=== PATIENT | male | born 1955 | race Caucasian/White ===

== ENCOUNTER 2017-05-11 08:57 | Emergency (ER) | payer OTHER ==
[~2017-05-11] VITALS: Ht 188 cm; Wt 117.9 kg
[2017-05-11] MEDS ORDERED: ONDANSETRON PF 4 MG/2 ML VIAL. IV ONE (09:15)
[2017-05-11] MEDS ORDERED: MORPHINE SULFATE 10 MG/ML VIAL. IV ONE (09:15)
[2017-05-11] MEDS ORDERED: KETOROLAC 30 MG/ML INJ. IV ONE (09:15)
[2017-05-11] MEDS ORDERED: TAMSULOSIN 0.4 MG CAP.ER.24H. PO ONE (09:15)
--- NOTE | 2017-05-11 09:30 | PHYS DOC ---
Past Medical History Past Medical History: Diabetes-Type II, Kidney Stone Past Surgical History: Knee Replacement, Tonsillectomy, Other Additional Past Surgical Histo: VASECTOMY,CATARACT BILAT Alcohol Use: Occasionally Drug Use: None Adult General Chief Complaint Chief Complaint: FLANK PAIN HPI HPI Patient is a 62 year old male with history of diabetes type 2 and kidney stones who presents with mild right flank pain that began 2-3 weeks ago. Patient denies any nausea, vomiting, urgency, frequency or hematuria. Patient states a couple weeks ago he fell on his back. He states he was seen at urgent care. Review of Systems Review of Systems Constitutional: Denies fever or chills [] Eyes: Denies change in visual acuity, redness, or eye pain [] HENT: Denies nasal congestion or sore throat [] Respiratory: Denies cough or shortness of breath [] Cardiovascular: No additional information not addressed in HPI [] GI: Denies abdominal pain, nausea, vomiting, bloody stools or diarrhea [] : Right flank pain. Denies dysuria or hematuria [] Musculoskeletal: Denies back pain or joint pain [] Integument: Denies rash or skin lesions [] Neurologic: Denies headache, focal weakness or sensory changes [] Current Medications Current Medications Current Medications Medications (Trade) Dose Ordered Sig/Nikita Start Time Stop Time Status Last Admin Dose Admin Ketorolac Tromethamine (Toradol) 30 mg 1X ONCE 05/11/17 09:15 05/11/17 09:22 DC 05/11/17 09:51 30 MG Morphine Sulfate 5 mg 1X ONCE 05/11/17 09:15 05/11/17 09:22 DC 05/11/17 09:52 5 MG Ondansetron HCl (Zofran) 4 mg 1X ONCE 05/11/17 09:15 05/11/17 09:22 DC 05/11/17 09:51 4 MG Tamsulosin HCl (Flomax) 0.4 mg 1X ONCE 05/11/17 09:15 05/11/17 09:22 DC 05/11/17 09:51 0.4 MG Allergies Allergies Allergies Coded Allergies Type Severity Reaction Last Updated Verified No Known Drug Allergies 05/11/17 No Physical Exam Physical Exam Constitutional: Well developed, well nourished, no acute distress, non-toxic appearance. [] HENT: Normocephalic, atraumatic, bilateral external ears normal, oropharynx moist, no oral exudates, nose normal. [] Eyes: PERRLA, EOMI, conjunctiva normal, no discharge. [] Neck: Normal range of motion, no tenderness, supple, no stridor. [] Cardiovascular:Heart rate regular rhythm, no murmur [] Lungs & Thorax: Bilateral breath sounds clear to auscultation [] Abdomen: Bowel sounds normal, soft, no tenderness, no masses, no pulsatile masses. [] Skin: Warm, dry, no erythema, no rash. [] Back: Slight tenderness to the right lower lumbar spine, no midline lumbar spine tenderness, no CVA tenderness. [] Extremities: No tenderness, no cyanosis, no clubbing, ROM intact, no edema. [] Neurologic: Alert and oriented X 3, normal motor function, normal sensory function, no focal deficits noted. [] Psychologic: Affect normal, judgement normal, mood normal. [] Current Patient Data Vital Signs Vital Signs Date Time Temp Pulse Resp B/P (MAP) Pulse Ox O2 Delivery O2 Flow Rate FiO2 05/11/17 10:56 76 15 153/81 (105) 92 Room Air 05/11/17 09:02 97.6 97.6 Lab Values Laboratory Tests Test 05/11/17 09:30 White Blood Count 7.5 x10^3/uL (4.0-11.0) Red Blood Count 5.06 x10^6/uL (4.30-5.70) Hemoglobin 15.7 g/dL (13.0-17.5) Hematocrit 45.3 % (39.0-53.0) Mean Corpuscular Volume 90 fL (79-100) Mean Corpuscular Hemoglobin 31 pg (25-35) Mean Corpuscular Hemoglobin Concent 35 g/dL (31-37) Red Cell Distribution Width 13.6 % (11.5-14.5) Platelet Count 179 x10^3/uL (140-400) Neutrophils (%) (Auto) 71 % (31-73) Lymphocytes (%) (Auto) 18 % (24-48) L Monocytes (%) (Auto) 7 % (0-9) Eosinophils (%) (Auto) 3 % (0-3) Basophils (%) (Auto) 1 % (0-3) Neutrophils # (Auto) 5.4 x10^3uL (1.8-7.7) Lymphocytes # (Auto) 1.3 x10^3/uL (1.0-4.8) Monocytes # (Auto) 0.5 x10^3/uL (0.0-1.1) Eosinophils # (Auto) 0.2 x10^3/uL (0.0-0.7) Basophils # (Auto) 0.1 x10^3/uL (0.0-0.2) Urine Collection Type Unknown Urine Color Yellow Urine Clarity Clear Urine pH 6.0 Urine Specific [place] 1.020 Urine Protein Negative mg/dL (NEG-TRACE) Urine Glucose (UA) Negative mg/dL (NEG) Urine Ketones (Stick) Negative mg/dL (NEG) Urine Blood Negative (NEG) Urine Nitrite Negative (NEG) Urine Bilirubin Negative (NEG) Urine Urobilinogen Dipstick 0.2 mg/dL (0.2 mg/dL) Urine Leukocyte Esterase Negative (NEG) Urine RBC 0 /HPF (0-2) Urine WBC 0 /HPF (0-4) Urine Squamous Epithelial Cells Occ /LPF Urine Bacteria 0 /HPF (0-FEW) Urine Mucus Marked /LPF Sodium Level 138 mmol/L (136-145) Potassium Level 4.3 mmol/L (3.5-5.1) Chloride Level 101 mmol/L (98-107) Carbon Dioxide Level 30 mmol/L (21-32) Anion Gap 7 (6-14) Blood Urea Nitrogen 8 mg/dL (8-26) Creatinine 0.8 mg/dL (0.7-1.3) Estimated GFR (Cockcroft-Gault) 97.6 BUN/Creatinine Ratio 10 (6-20) Glucose Level 219 mg/dL (70-99) H Calcium Level 9.0 mg/dL (8.5-10.1) Total Bilirubin 0.5 mg/dL (0.2-1.0) Aspartate Amino Transferase (AST) 17 U/L (15-37) Alanine Aminotransferase (ALT) 27 U/L (16-63) Alkaline Phosphatase 67 U/L (46-116) Total Protein 7.4 g/dL (6.4-8.2) Albumin 4.3 g/dL (3.4-5.0) Albumin/Globulin Ratio 1.4 (1.0-1.7) Lipase 166 U/L (73-393) Laboratory Tests 05/11/17 09:30 Laboratory Tests 05/11/17 09:30 EKG EKG [] Radiology/Procedures Radiology/Procedures []PROCEDURE: CT ABDOMEN PELVIS WO CONTRAST Examination: CT of the pelvis was performed without contrast History: History of right flank pain for 2 to 3 weeks, history of renal stones Comparison: None available Technique: Axial CT images of the abdomen pelvis were performed without contrast. Coronal and sagittal reformats are performed PQRS Compliance Statement: One or more of the following individualized dose reduction techniques were utilized for this examination: 1. Automated exposure control 2. Adjustment of the mA and/or kV according to patient size 3. Use of iterative reconstruction technique Findings: Patchy groundglass airspace opacities identified in the bibasal lungs. No evidence of free air identified in the abdomen. The evaluation of the solid organs is limited due to lack of IV contrast. The evaluation of bowel is limited due to lack of oral contrast. There is mild decreased attenuation noted throughout the liver likely hepatic steatosis. Mild hepatomegaly. The gallbladder is mildly distended. Small calcified stone identified within the gallbladder. Visualized spleen, adrenals grossly appears unremarkable. The visualized pancreas grossly appears unremarkable. The stomach is mildly distended. The small bowel is nondilated. Appendix is normal. Feces and gas noted in the colon. Multiple sigmoid colon diverticulosis. The urinary bladder is mildly distended. Questionable minimal stranding identified around the urinary bladder. Punctate 2 mm intrarenal collecting system calculi is identified in the right kidney. No evidence of hydronephrosis. Punctate 1 mm intrarenal collecting system calculi identified left kidney. There is a 1.9 cm density measuring 95 Hounsfield units projects in the inferior aspect of the lower pole of the left kidney medially could be a hyperdense cyst or mass. Mild aortic atherosclerosis. Minimal enlarged prostate with central prostatic calcifications. Moderate size fat and omentum containing umbilical hernia. Moderate degenerative changes identified in the visualized thoracal lumbar spine. L5 left spondylolysis. Tiny sclerotic density measuring 2 mm identified in the left 11th posterior rib. Impression: 1. Minimal questionable fat stranding identified about the urinary bladder, nonspecific. Mild cystitis is not excluded. Recommend correlation with lab values. 2. Punctate bilateral intrarenal collecting system calculi without hydronephrosis. 3. 1.6 cm hyper density identified in the medial aspect of the inferior left kidney could be hyperdense cyst or mass. Follow-up nonemergent Course & Med Decision Making Course & Med Decision Making Pertinent Labs and Imaging studies reviewed. (See chart for details) This is a 62-year-old male patient presented to the ED today with a right flank pain for 2-3 weeks. Patient also has fallen on his back a couple weeks ago. CBC lipase with no acute findings, CMP was noted for glucose of 219 patient has history of diabetes. Urine analysis is negative for infection, Negative for blood. CT of the abdomen and pelvic was noted for intrarenal calculi with no hydronephrosis. Those questionable cystitis though patient has no elevated white count no infection in his urine. Patient was also noted for a cyst/mass on his left kidney which I requested he follows up with the PCP or urologist which he doesn't have. His pain appeared to be more musculoskeletal on the right low lumbar back. I recommended this patient establishes care with a PCP, provided him a doctor's list for follow-up. He also has umbilical hernia, and cholelithiasis. Recommended he follows up with the general surgeon for this. Dragon Disclaimer Dragon Disclaimer This electronic medical record was generated, in whole or in part, using a voice recognition dictation system. Departure Departure Impression: Primary Impression: Low back pain Additional Impressions: Acute right flank pain Cholelithiasis Umbilical hernia Disposition: 01 HOME, SELF-CARE Condition: STABLE Patient Instructions: Back Pain, Adult, Cholelithiasis, Flank Pain, Easy-to- Read Additional Instructions: You were seen for right flank pain/low back pain. Your work up in the emergency room was negative for any acute findings. Your urine was negative for infection. Your CT was noted for intrarenal calculi/kidney stones in your kidneys. This typically don't cause issues unless they start moving. You also were noted for a cyst on your left kidney. We highly recommend you establish care with a urologist or even a primary care doctor and follow-up with this. [facility] has a urologist. [facility] does not have one. Their phone number is [phone]. Please select one of the primary care doctors from the list provided and follow-up. He also need to follow-up with a general surgeon for gallstones as well as umbilical hernia. Take the prescribed medicines as needed for pain. Do not drive or operate machinery on them. Scripts Cyclobenzaprine Hcl (CYCLOBENZAPRINE HCL) 10 Mg Tablet 1 TAB PO TID, #30 TAB Prov: KEVIN DAVIS APRN 05/11/17 Hydrocodone/Apap 5-325 (NORCO 5-325 TABLET) 1 Each Tablet 1-2 TAB PO Q4-6HRS, #15 TAB Prov: KEVIN DAVIS APRN 05/11/17 Problem Qualifiers Primary Impression: Low back pain Chronicity: acute Back pain laterality: right Sciatica presence: without sciatica Qualified Codes: M54.5 - Low back pain Additional Impressions: Cholelithiasis Cholelithiasis location: gallbladder Cholecystitis presence: without cholecystitis Biliary obstruction: with biliary obstruction Qualified Codes: K80.21 - Calculus of gallbladder without cholecystitis with obstruction Umbilical hernia Obstruction and gangrene presence: without obstruction or gangrene Qualified Codes: K42.9 - Umbilical hernia without obstruction or gangrene KEVIN DAVIS APRN May 11, 2017 09:29
[2017-05-11 09:43] LABS: BASO # 0.1 x10^3/uL (0.0-0.2); BASO % 1 % (0-3); BILIRUBIN,URINE NEGATIVE (NEG); EOS % 3 % (0-3); GLUCOSE,URINE NEGATIVE (NEG); HEMATOCRIT 45.3 % (39.0-53.0); HEMOGLOBIN 15.7 g/dL (13.0-17.5); LYMPH # 1.3 x10^3/uL (1.0-4.8); LYMPH % 18 % (24-48); MEAN CORPUSCULAR HEMOGLOBIN 31 pg (25-35); MEAN CORPUSCULAR HGB CONC 35 g/dL (31-37); MEAN CORPUSCULAR VOLUME 90 fL (79-100); MONO % 7 % (0-9); NEUT % 71 % (31-73); NITRITE,URINE NEGATIVE (NEG); PLATELET COUNT 179 x10^3/uL (140-400); PROTEIN,URINE NEGATIVE (NEG-TRACE); RED BLOOD COUNT 5.06 x10^6/uL (4.30-5.70); RED CELL DISTRIBUTION WIDTH 13.6 % (11.5-14.5); UROBILINOGEN,URINE 0.2 mg/dL (0.2 mg/dL); WHITE BLOOD COUNT 7.5 x10^3/uL (4.0-11.0)
[2017-05-11 09:48] LABS: CREATININE 0.8 mg/dL (0.7-1.3); GFR 97.6; POTASSIUM 4.3 mmol/L (3.5-5.1)
[2017-05-11 09:54] LABS: ALBUMIN 4.3 g/dL (3.4-5.0); ALBUMIN/GLOBULIN RATIO 1.4 (1.0-1.7); TOTAL BILIRUBIN 0.5 mg/dL (0.2-1.0); TOTAL PROTEIN 7.4 g/dL (6.4-8.2)
[2017-05-11 10:17] LABS: BACTERIA,URINE 0 /HPF (0-FEW); RBC,URINE 0 /HPF (0-2); SQUAMOUS EPITHELIAL CELL,UR OCC /LPF; WBC,URINE 0 /HPF (0-4)
--- NOTE | 2017-05-11 10:35 | RAD ---
Examination: CT of the pelvis was performed without contrast History: History of right flank pain for 2 to 3 weeks, history of renal stones Comparison: None available Technique: Axial CT images of the abdomen pelvis were performed without contrast. Coronal and sagittal reformats are performed PQRS Compliance Statement: One or more of the following individualized dose reduction techniques were utilized for this examination: 1. Automated exposure control 2. Adjustment of the mA and/or kV according to patient size 3. Use of iterative reconstruction technique Findings: Patchy groundglass airspace opacities identified in the bibasal lungs. No evidence of free air identified in the abdomen. The evaluation of the solid organs is limited due to lack of IV contrast. The evaluation of bowel is limited due to lack of oral contrast. There is mild decreased attenuation noted throughout the liver likely hepatic steatosis. Mild hepatomegaly. The gallbladder is mildly distended. Small calcified stone identified within the gallbladder. Visualized spleen, adrenals grossly appears unremarkable. The visualized pancreas grossly appears unremarkable. The stomach is mildly distended. The small bowel is nondilated. Appendix is normal. Feces and gas noted in the colon. Multiple sigmoid colon diverticulosis. The urinary bladder is mildly distended. Questionable minimal stranding identified around the urinary bladder. Punctate 2 mm intrarenal collecting system calculi is identified in the right kidney. No evidence of hydronephrosis. Punctate 1 mm intrarenal collecting system calculi identified left kidney. There is a 1.9 cm density measuring 95 Hounsfield units projects in the inferior aspect of the lower pole of the left kidney medially could be a hyperdense cyst or mass. Mild aortic atherosclerosis. Minimal enlarged prostate with central prostatic calcifications. Moderate size fat and omentum containing umbilical hernia. Moderate degenerative changes identified in the visualized thoracal lumbar spine. L5 left spondylolysis. Tiny sclerotic density measuring 2 mm identified in the left 11th posterior rib. Impression: 1. Minimal questionable fat stranding identified about the urinary bladder, nonspecific. Mild cystitis is not excluded. Recommend correlation with lab values. 2. Punctate bilateral intrarenal collecting system calculi without hydronephrosis. 3. 1.6 cm hyper density identified in the medial aspect of the inferior left kidney could be hyperdense cyst or mass. Follow-up nonemergent ultrasound can be considered. 4.Cholelithiasis. 5. Mild hepatic steatosis. Mild hepatomegaly. 6. Moderate size fat and omentum containing umbilical hernia. 7. Tiny sclerotic density measuring 2 mm identified in the left 11th posterior rib. Nonspecific could be a small bone island.
[2017-05-11] MEDS ORDERED: CYCL10TA2 PO (11:37)
[2017-05-11] MEDS ORDERED: HYDR-971 PO (11:37)
[2017-05-11 11:56] VITALS: BP 156/85
== END 2017-05-11 12:15 | disposition home or self-care (01) ==
LOC: ER 08:57
DX: K80.21 Calculus of gallbladder without cholecystitis with obstruction (principal); K42.9 Umbilical hernia without obstruction or gangrene; M54.5 Low back pain; E11.9 Type 2 diabetes mellitus without complications; Z87.442 Personal history of urinary calculi; Z96.659 Presence of unspecified artificial knee joint
CPT/HCPCS: 36415; 74176; 80053; 81001; 83690; 85025; 96374; 96375; 99285; J1885; J2270; J2405

== ENCOUNTER 2017-05-22 09:07 | Observation (INO) | payer OTHER ==
[~2017-05-22] VITALS: Ht 188 cm; Wt 134.3 kg
[2017-05-22] VITALS (11 sets, daily range): BP systolic 114–165; BP diastolic 54–97
[~2017-05-22 09:07] MED LIST: ACET650T89 PO; CYCL10TA2 PO; GLUC-12 PO; HYDR-971 PO; HYDROmorphone 2 MG/ML VIAL IV PRN; LIDOCAINE 1% PF 2 ML VIAL. ID PRN; METF500T4 PO; MORPHINE SULFATE 2 MG/ML DISP.SYRIN. IV PRN; MULT1TAB52 PO; ONDANSETRON PF 4 MG/2 ML VIAL. IV PRN; PROCHLORPERAZINE 10 MG/2 ML VIAL. IV PRN; fentaNYL PF VIAL 100 MCG/2 ML VIAL IV PRN
[2017-05-22] MEDS: IV RINGERS,LACTATED 1000ML 1,000 ML IV SCH ×2 (10:33→14:41)
[2017-05-22] MEDS ORDERED: IOHEXOL 300 MG/ML 50 ML VIAL. ONE (10:48)
[2017-05-22] MEDS ORDERED: BUPIVACAINE-EPI 0.5%-1:200000 50 ML VIAL. ONE (10:49)
[2017-05-22] MEDS ORDERED: SURGICEL HEMOSTAT 4X8 EACH. ONE (10:49)
[2017-05-22] MEDS ORDERED: MIDAZOLAM HCL/PF 2 MG/2 ML VIAL. ONE (10:59)
[2017-05-22] MEDS ORDERED: fentaNYL PF VIAL 250 MCG/5 ML VIAL ONE (10:59)
[2017-05-22] MEDS ORDERED: SUCCINYLCHOLINE 200 MG/10 ML VIAL. ONE (10:59)
[2017-05-22] MEDS ORDERED: PROPOFOL 20 ML IV ONE (11:01)
[2017-05-22] MEDS ORDERED: DESFLURANE > 120 MINUTES IH ONE (11:01)
[2017-05-22] MEDS ORDERED: ONDANSETRON PF 4 MG/2 ML VIAL. ONE (11:01)
[2017-05-22] MEDS ORDERED: LIDOCAINE 2% PF Vial for OR 5 ML VIAL. ONE (11:01)
[2017-05-22] MEDS ORDERED: PHENYLEPHRINE in 0.9% NACL PF 1 MG/10 ML DISP.SYRIN. IV ONE (12:25)
[2017-05-22] MEDS ORDERED: REMIFENTANIL 1 MG VIAL. IV ONE (12:45)
[2017-05-22] MEDS ORDERED: GLYCOPYRROLATE 1 MG/5 ML VIAL. ONE (12:53)
[2017-05-22] MEDS ORDERED: NEOSTIGMINE 10 MG/10 ML VIAL. ONE (12:54)
--- NOTE | 2017-05-22 13:02 | RAD ---
Indication protocol study. Assess for. Anatomy. Assess for potential choledocholithiasis. For members of the Department of surgery fluoroscopy was provided. 4 spot fluoroscopic images were obtained. The fluoroscopy time indicated associated with the imaging is 17 seconds. No filling defects are seen to suggest choledocholithiasis. Contrast flows unremarkably into the duodenum. IMPRESSION: Normal operative cholangiogram
--- NOTE | 2017-05-22 13:25 | PDOC4 ---
Operative Note Operative Note Operative Note: Preoperative Diagnosis: Symptomatic cholelithiasis Postoperative Diagnosis: Same Procedure: Laparoscopic cholecystectomy with intraoperative cholangiogram Surgeons: Anuj Asst: Nayana SORENSEN Anesthesia: Gen. Estimated Blood Loss: 25 mL Specimen: Gallbladder to pathology Drains: None Complications: None Indications: The patient is a 62-year-old male who is been experiencing recurrent upper abdominal pain consistent with biliary colic. His evaluation identified gallstones. Surgical treatment was offered by means of a laparoscopic cholecystectomy. The risks of surgery were discussed which include bleeding, infection, bile duct injury, bile leak, pain, the potential for additional surgeries or procedures. The patient understands and would like to proceed. In addition he has an incidental mid abdominal hernia containing fat. I did discuss with him options for surgical repair and the typical use of mesh. However I would not advise for placement of mesh at the same time as a cholecystectomy out of concern for contamination. He understands and we can plan for a dedicated hernia repair in the near future. Description: The patient was taken to the operating room and laid supine on the operating table. General anesthesia was performed. The abdomen was prepped with ChloraPrep and draped in a standard surgical fashion. A right abdominal incision was made with a scalpel through which a visualized 5 mm trocar was inserted. A pneumoperitoneum was then created and the laparoscope was introduced. In the upper midabdomen an 11 mm trocar was inserted and in the right upper quadrant two 5 mm trocars were inserted. The gallbladder was retracted cephalad. The cystic duct was dissected free from surrounding tissues. One clip was placed on the duct near the gallbladder junction. An opening was made in the duct and a cholangiocatheter placed within and secured with a clip. Using contrast dye and fluoroscopy an intraoperative cholangiogram was performed that appeared unremarkable. The clip and catheter were then withdrawn. Three clips were placed on the cystic duct and it was divided. The cystic artery was then identified, dissected free, doubly clipped and divided as well. The gallbladder was then mobilized away from the liver with cautery. The gallbladder was then placed in an endoscopic bag and extracted at the superior abdominal trocar site. The fascia there was closed with an 0 Vicryl suture. All blood and irrigation fluid was suctioned and hemostasis was good. The remaining ports were removed and the pneumoperitoneum was relieved. The skin incisions were injected with half percent Marcaine with epinephrine, and all were closed using 4-0 Monocryl suture. Steri-Strips and dressings were then applied. The patient tolerated the procedure well and was sent to the recovery room in stable condition. At the end of the case all counts were correct. PORTILLO ROMO MD May 22, 2017 13:25
[2017-05-22] MEDS ORDERED: ONDANSETRON PF 4 MG/2 ML VIAL. IV PRN (13:30)
[2017-05-22] MEDS ORDERED: oxyCODONE/APAP 5/325 1 TAB TABLET PO PRN (13:30)
[2017-05-22] MEDS ORDERED: DEXTROSE 50% 25 GM / 50ML DISP.SYRIN. IV PRN (13:30)
[2017-05-22] MEDS ORDERED: 0.9 % SODIUM CHLORIDE 10 ML DISP.SYRIN. IV PRN (13:30)
[2017-05-22] MEDS ORDERED: HYDROmorphone 2 MG/ML VIAL IV PRN (13:30)
[2017-05-22] MEDS: IV 1/2 NORMAL SALINE 1,000 ML IV SCH (14:00)
[2017-05-22] MEDS ORDERED: INSULIN ASPART 100 UNIT/ML 10ML VIAL. SQ ONE ×2 (14:19→15:00)
[2017-05-22] MEDS: fentaNYL PF VIAL 100 MCG/2 ML VIAL IV PRN ×2 (14:39→14:58)
[2017-05-22] MEDS ORDERED: INFLUENZA VAX SCREEN BY RX. MC ONE (16:15)
[2017-05-22] MEDS ORDERED: INSULIN ASPART 300 UNITS/3 ML INSULN.PEN SQ SCH (16:30)
[2017-05-22] MEDS ORDERED: FLU VACC QS2017-18 (36MOS+)/PF 0.5 ML SYRINGE. VAX IM ONE (16:30)
[2017-05-22] MEDS: oxyCODONE/APAP 5/325 1 TAB TABLET PO PRN ×3 (17:20→22:18)
[2017-05-23] MEDS: IV 1/2 NORMAL SALINE 1,000 ML IV SCH (02:30)
[2017-05-23 02:32] VITALS: BP 114/73
[2017-05-23 06:46] VITALS: BP 119/67
[2017-05-23] MEDS ORDERED: metFORMIN 500 MG TABLET PO SCH (08:00)
[2017-05-23] MEDS: oxyCODONE/APAP 5/325 1 TAB TABLET PO PRN (09:25)
[2017-05-23] MEDS ORDERED: OXYC1TAB7 PO (11:56)
--- NOTE | 2017-05-23 11:58 | PDOC3 ---
Discharge Summary Date of Admission: May 22, 2017 Date of Discharge: May 23, 2017 Follow-Up: Other (2 weeks ) Admitting Diagnosis comment: cholelithiasis Problems: FINAL DIAGNOSIS cholelithiasis Brief Hospital Course Mr. Joseph is a 62 old male who presented with cholelithiasis. Underwent laparoscopic cholecystectomy. Postoperatively tolerating diet, ambulating, pain managed. Ready for discharge home CONDITION AT DISCHARGE: Stable Discharge Medications Current Medications Ondansetron HCl (Zofran) 4 mg PRN Q6HRS PRN IV NAUSEA/VOMITING; Start 05/22/17 at 07:00; Stop 05/22/17 at 16:33; Status DC Fentanyl Citrate (Fentanyl 2ml Vial) 25 mcg PRN Q5MIN PRN IV MILD PAIN; Start 05/22/17 at 07:00; Stop 05/22/17 at 16:33; Status DC Fentanyl Citrate (Fentanyl 2ml Vial) 50 mcg PRN Q5MIN PRN IV MODERATE PAIN Last administered on 05/22/17 14:58; Start 05/22/17 at 07:00; Stop 05/22/17 at 16:33; Status DC Morphine Sulfate 1 mg PRN Q10MIN PRN IV SEVERE PAIN; Start 05/22/17 at 07:00; Stop 05/22/17 at 16:33; Status DC Ringer's Solution 1,000 ml @ 30 mls/hr Q24H IV Last administered on 05/22/17t 14:41; Start 05/22/17 at 07:00; Stop 05/22/17 at 16:33; Status DC Lidocaine HCl (Xylocaine-Mpf 1% Vial) 2 ml PRN 1X PRN ID PRIOR TO IV START; Start 05/22/17 at 07:00; Stop 05/22/17 at 16:33; Status DC Hydromorphone HCl (Dilaudid) 0.5 mg PRN Q10MIN PRN IV SEV PAIN, Second choice; Start 05/22/17 at 07:00; Stop 05/22/17 at 16:33; Status DC Prochlorperazine Edisylate (Compazine) 5 mg PACU PRN PRN IV NAUSEA, MRX1; Start 05/22/17 at 07:00; Stop 05/22/17 at 16:33; Status DC Cefazolin Sodium/ Dextrose 50 ml @ 100 mls/hr 1X PRN PRN IV PRIOR TO SURGERY Last administered on 05/22/17 12:35; Start 05/22/17 at 08:00 Midazolam HCl (Versed) 2 mg STK-MED ONCE .ROUTE ; Start 05/22/17 at 10:59; Stop 05/22/17 at 11:00; Status DC Fentanyl Citrate (Fentanyl 5ml Vial) 250 mcg STK-MED ONCE .ROUTE ; Start at 10:59; Stop 05/22/17 at 11:00; Status DC Succinylcholine Chloride (Anectine) 200 mg STK-MED ONCE .ROUTE ; Start 05/22/17 at 10:59; Stop 05/22/17 at 11:00; Status DC Desflurane (Suprane) 90 ml STK-MED ONCE IH ; Start 05/22/17 at 11:01; Stop 05/22 at 11:02; Status DC Propofol 20 ml @ As Directed STK-MED ONCE IV ; Start 05/22/17 at 11:01; Stop at 11:02; Status DC Lidocaine HCl (Lidocaine Pf 2% Vial) 5 ml STK-MED ONCE .ROUTE ; Start 05/22/17 at 11:01; Stop 05/22/17 at 11:02; Status DC Ondansetron HCl (Zofran) 4 mg STK-MED ONCE .ROUTE ; Start 05/22/17 at 11:01; Stop 05/22/17 at 11:02; Status DC Iohexol (Omnipaque 300 Mg/ml) 50 ml STK-MED ONCE .ROUTE Last administered on 12:53; Start 05/22/17 at 10:48; Stop 05/22/17 at 11:49; Status DC Bupivacaine HCl/ Epinephrine Bitart (Marcaine-Epi 0.5%-[id number]) 50 ml STK-MED ONCE .ROUTE Last administered on 05/22/17 12:39; Start 05/22/17 at 10:49; Stop 05/22/17 at 11:49; Status DC Cellulose 1 each STK-MED ONCE .ROUTE ; Start 05/22/17 at 10:49; Stop 05/22/17 at 11:49; Status DC Phenylephrine HCl 1 mg STK-MED ONCE IV ; Start 05/22/17 at 12:25; Stop 05/22/17 at 12:26; Status DC Remifentanil HCl (Ultiva) 1 mg STK-MED ONCE IV ; Start 05/22/17 at 12:45; Stop 05/22/17 at 12:46; Status DC Glycopyrrolate (Robinul) 1 mg STK-MED ONCE .ROUTE ; Start 05/22/17 at 12:53; Stop 05/22/17 at 12:54; Status DC Neostigmine Methylsulfate (Bloxiverz) 10 mg STK-MED ONCE .ROUTE ; Start at 12:54; Stop 05/22/17 at 12:55; Status DC Sodium Chloride (Normal Saline Flush) 3 ml QSHIFT PRN IV AFTER MEDS AND BLOOD DRAWS; Start 05/22/17 at 13:30 Sodium Chloride 1,000 ml @ 80 mls/hr [id number] IV ; Start 05/22/17 at 14:00; Stop 05/23/17 at 07:10; Status DC Dextrose (Dextrose 50%-Water Syringe) 12.5 gm PRN Q15MIN PRN IV SEE COMMENTS; Start 05/22/17 at 13:30 Oxycodone/ Acetaminophen (Percocet 5/325) 1 tab PRN Q4HRS PRN PO MILD PAIN, 1ST CHOICE Last administered on 05/23/17 09:25; Start 05/22/17 at 13:30 Oxycodone/ Acetaminophen (Percocet 5/325) 2 tab PRN Q4HRS PRN PO MODERATE PAIN , SEVERE PAIN; Start 05/22/17 at 13:30 Hydromorphone HCl (Dilaudid) 0.2 mg PRN Q1HR PRN IV PAIN; Start 05/22/17 at 13: 30 Ondansetron HCl (Zofran) 4 mg PRN Q6HRS PRN IV NAUESA, 1ST CHOICE; Start at 13:30 Metformin HCl (Glucophage) 500 mg DAILYWBKFT PO Last administered on 08:19; Start 05/23/17 at 08:00 Insulin Aspart (NovoLOG) 5 units TIDAC SQ Last administered on 05/22/17 14:24 ; Start 05/22/17 at 16:30; Stop 05/22/17 at 16:30; Status DC Insulin Aspart (NovoLOG VIAL) 100 unit STK-MED ONCE SQ ; Start 05/22/17 at 14:19 ; Stop 05/22/17 at 14:20; Status DC Insulin Aspart (NovoLOG VIAL) 5 unit 1X ONCE SQ ; Start 05/22/17 at 15:00; Stop 05/22/17 at 15:01; Status DC Info (Do NOT chart on this placeholder) 1 each 1X ONCE MC ; Start 05/22/17 at 16:15; Stop 05/22/17 at 16:16; Status UNV Influenza Virus Vaccine Quadrival (Fluarix Quad [id number] Syringe) 0.5 ml ONCE ONCE VAX IM Last administered on 05/22/17t 17:24; Start 05/22/17 at 16:30; Stop 05/22/17 at 16:31; Status DC Active Scripts Active [place] 5-325 Tablet (Acetaminophen/Hydrocodone Bitart) 1 Each Tablet 1-2 Tab PO Q4-6HRS Reported Arthritis Pain (Acetaminophen) 650 Mg Tablet.er 650 Mg PO DAILY Multivitamins (Multivitamin) 1 Each Tablet 1 Tab PO DAILY Glucosamine Chondroit Msm Tab (Glucosamine/Msm/Chondroitin A) 1 Each Tablet 1 Each PO DAILY Metformin Hcl 500 Mg Tablet 500 Mg PO DAILYWBKFT Vital Signs Vital Signs Date Time Temp Pulse Resp B/P (MAP) Pulse Ox O2 Delivery O2 Flow Rate FiO2 05/23/17 09:25 Room Air 05/23/17 06:46 98.8 85 19 119/67 (84) 95 98.8 05/22/17 18:23 4.0 Labs Laboratory Tests Test 05/22/17 14:01 05/23/17 06:19 Glucose (Fingerstick) 231 mg/dL (70-99) 217 mg/dL (70-99) Laboratory Tests Test 05/22/17 14:01 05/23/17 06:19 Glucose (Fingerstick) 231 mg/dL (70-99) 217 mg/dL (70-99) Allergies Allergies Coded Allergies Type Severity Reaction Last Updated Verified No Known Drug Allergies 05/22/17 No Disposition/Orders: D/C to Home SWATHI MEJIA APRN May 23, 2017 11:58 PORTILLO ROMO MD May 23, 2017 12:57
--- NOTE | 2017-05-23 11:59 | PDOC ---
SWATHI MEJIA APRN 05/23/17 1159: SURGICAL PROGRESS NOTE Subjective tolerating diet ambulating urinating Vital Signs Vital Signs Date Time Temp Pulse Resp B/P (MAP) Pulse Ox O2 Delivery O2 Flow Rate FiO2 05/23/17 09:25 Room Air 05/23/17 06:46 98.8 85 19 119/67 (84) 95 98.8 05/22/17 18:23 4.0 General: Alert, Oriented X3, Cooperative, No acute distress Abdomen: Soft, Other (ND, incisions c/d/i, no erythema ) Labs Laboratory Tests Test 05/22/17 14:01 05/23/17 06:19 Glucose (Fingerstick) 231 mg/dL (70-99) 217 mg/dL (70-99) Laboratory Tests Test 05/22/17 14:01 05/23/17 06:19 Glucose (Fingerstick) 231 mg/dL (70-99) 217 mg/dL (70-99) Problem List s/p lap irene DC home FU in 2 weeks Problems: PORTILLO ROMO MD 05/23/17 1256: SURGICAL PROGRESS NOTE Assessment/Plan Agree with above Problems: SWATHI MEJIA APRN May 23, 2017 11:59 PORTILLO ROMO MD May 23, 2017 12:56
[2017-05-23 12:19] VITALS: BP 156/94
--- NOTE | 2017-05-23 14:42 | PATHOLOGY ---
PATHOLOGY REPORT * * * * * * * * FINAL DIAGNOSIS: Gallbladder, laparoscopic cholecystectomy: - Cholelithiasis. - Chronic cholecystitis. COMMENT: There is no evidence of malignancy. (JPM:; 05/23/2017) REPORT ELECTRONICALLY SIGNED BY: Mikey Winter M.D. DATE/TIME: 05/23/2017 14:41 * * * * * * * * GROSS PATHOLOGY: Received in formalin labeled "Tristen Neal, gallbladder sac with contents," is a 6.7 x 3.8 x 2.1 cm, previously opened gallbladder with dark arce to purple, vascular and wrinkled serosal surfaces. Opening the gallbladder reveals dark arce, velvety mucosa and an average wall thickness of 0.2 cm. Calculi are present, measuring 0.3-0.5 cm in maximum dimension, possessing a dark black and granular appearance, and feeling friable to the touch. No masses are noted grossly. Helminthologist sections from the body and fundus are submitted along with the proximal margin in cassette A1. (TSD; 05/22/2017) INITIAL CPT CODE(S): A; 40888 Professional services performed [place] [facility] [address] Technical services performed by [facility] at [address] [place] [address], [facility] [address] [address]. SPECIMEN(S) RECEIVED: A.Gallbladder sac with contents CLINICAL HISTORY: Ventral hernia, gallstones PATIENT: TRISTEN NEAL /AGE: 8 1955 (Age: 62) PATIENT #: [id number] ALT CASE #: SPECIMEN COLLECTION DATE: 05/22/2017 SPECIMEN RECEIVED DATE: 05/22/2017 [facility] - [id number] [place] [address] - PHONE: [phone] * * * END OF REPORT * * *
== END 2017-05-23 12:35 | disposition home or self-care (01) ==
LOC: SURG 09:07 → 4 SOUTHEST 13:25
PROVIDERS: ADMIT Surgery; ATTEND Surgery
DX: K80.20 Calculus of gallbladder without cholecystitis without obstruction (principal); K46.9 Unspecified abdominal hernia without obstruction or gangrene; Z23 Encounter for immunization
CPT/HCPCS: 47563; 74300; 82962; 90686; C1769; G0378; G0379; J0330; J0690; J1815; J2250; J2405; J2704; J2710; J3010; J3490; J7030; Q9967; J2370; J7120; J2001

== ENCOUNTER 2017-11-14 14:34 | Emergency (ER) | payer OTHER ==
[2017-11-14] MEDS: KETOROLAC 60 MG/2 ML INJ. IM (15:47)
== END 2017-11-14 15:48 | disposition home or self-care (01) ==
LOC: ER 14:34
DX: G89.29 Other chronic pain (principal); M25.562 Pain in left knee; E11.9 Type 2 diabetes mellitus without complications; Z87.442 Personal history of urinary calculi; Z90.49 Acquired absence of other specified parts of digestive tract; Z98.890 Other specified postprocedural states
CPT/HCPCS: 96372; 99283-25; J1885

== ENCOUNTER → 2020-08-18 | Outpatient (CLI) | payer MEDICARE ==
[2019-03-19 17:51] VITALS: BP 149/76
[~2020-08-18] MED LIST changes: +ATOR10TA PO; +HYDR-2761 PO; +HYDR-3164 PO; -HYDR-971 PO; -HYDROmorphone 2 MG/ML VIAL IV PRN; -LIDOCAINE 1% PF 2 ML VIAL. ID PRN; +METF500T16 PO; -METF500T4 PO; -MORPHINE SULFATE 2 MG/ML DISP.SYRIN. IV PRN; +MULT-445 PO; -MULT1TAB52 PO; -ONDANSETRON PF 4 MG/2 ML VIAL. IV PRN; +OXYC1TAB15 PO; +OXYC1TAB7 PO; -PROCHLORPERAZINE 10 MG/2 ML VIAL. IV PRN; -fentaNYL PF VIAL 100 MCG/2 ML VIAL IV PRN
--- NOTE | 2020-08-18 16:16 | KCIC ---
EXAM: Lumbar spine, 6 views. HISTORY: Pain. COMPARISON: None. FINDINGS: 6 views of the lumbar spine are obtained. There is a transitional lumbosacral segment. This is considered L5 for this dictation. Based on this numbering system, there are blastic T12 ribs. The re is elongation of a sacralized left L5 transverse process resulting in ankylosis with the left purnima c wing. There is multilevel endplate remodeling and anterior osteophytosis. There is grade 1 anteroli sthesis of L4 on L5. There is disc space narrowing at the lumbosacral junction, a component of which is likely due to a rudimentary disc at this level. There is severe multilevel facet arthropathy. Ther e are cholecystomy clips. IMPRESSION: 1. Multilevel degenerative change throughout the lumbar spine, primarily at the lumbosacral junction. 2. Transitional lumbosacral segment, considered L5 for this dictation. There is ankylosis of an elong ated left L5 transverse process and the left iliac wing. 3. No acute osseous finding. Electronically signed by: Naheed Parra MD (08/18/2020 4:14 PM) [id number]
== END ==
LOC: KCIC 15:37
PROVIDERS: ATTEND Internal Medicine
DX: M47.817 Spondylosis without myelopathy or radiculopathy, lumbosacral region (principal)
CPT/HCPCS: 72110

== ENCOUNTER 2021-11-27 20:21 | Emergency (ER) | payer MEDICARE ==
[~2021-11-27] VITALS: Ht 188 cm; Wt 147.7 kg
[~2021-11-27 20:21] MED LIST changes: +CYCL10TA19 PO; -CYCL10TA2 PO
[2021-11-27] MEDS ORDERED: KETOROLAC 60 MG/2 ML VIAL. IM ONE (21:15)
[2021-11-27 21:42] LABS: BASO # 0.1 x10^3/uL (0.0-0.2); BASO % 1 % (0-3); EOS # 0.1 x10^3/uL (0.0-0.7); EOS % 1 % (0-3); HEMATOCRIT 42.4 % (39.0-53.0); HEMOGLOBIN 14.2 g/dL (13.0-17.5); LYMPH # 0.8 x10^3/uL (1.0-4.8); LYMPH % 7 % (24-48); MEAN CORPUSCULAR HEMOGLOBIN 29 pg (25-35); MEAN CORPUSCULAR HGB CONC 34 g/dL (31-37); MEAN CORPUSCULAR VOLUME 87 fL (79-100); MONO # 0.6 x10^3/uL (0.0-1.1); MONO % 5 % (0-9); NEUT # 9.5 x10^3/uL (1.8-7.7); NEUT % 85 % (31-73); PLATELET COUNT 185 x10^3/uL (140-400); RED BLOOD COUNT 4.87 x10^6/uL (4.30-5.70); RED CELL DISTRIBUTION WIDTH 14.1 % (11.5-14.5); WHITE BLOOD COUNT 11.1 x10^3/uL (4.0-11.0)
[2021-11-27 21:53] LABS: CALCIUM 8.6 mg/dL (8.5-10.1); GFR 74.5
[2021-11-27] MEDS ORDERED: KETOROLAC 15 MG/ML VIAL. IVP ONE (22:00)
[2021-11-27 22:01] LABS: ALBUMIN 3.8 g/dL (3.4-5.0); ALBUMIN/GLOBULIN RATIO 1.2 (1.0-1.7); TOTAL BILIRUBIN 0.4 mg/dL (0.2-1.0)
--- NOTE | 2021-11-27 22:19 | PHYS DOC ---
Past Medical History Past Medical History: Arthritis, Diabetes-Type II, Kidney Stone Additional Past Medical Histor: Parkinson's Additional Past Surgical Histo: VASECTOMY,CATARACT BILAT,HERNIA REPAIR Smoking Status: Former Smoker Alcohol Use: Occasionally Drug Use: None General Adult EDM: Chief Complaint: MECHANICAL FALL HPI: HPI: Patient is a 66 year old male who presents with head laceration, back pain, chest wall pain status post mechanical fall at home. Patient states he was attempting to put on pants when he lost his balance and fell. He states he hit his head and back on the door and his chin was flexed uncomfortably towards his chest. Patient denies any presyncopal feelings including lightheadedness, unsteadiness, vertigo. He denies blood thinner use. Patient has no other complaints at this time. Review of Systems: Review of Systems: Constitutional: Denies fever, chills or generalized weakness Eyes: Denies change in visual acuity, visual field deficits or discharge HENT: Denies ear pain, nasal congestion or sore throat Respiratory: Denies cough or shortness of breath Cardiovascular: Denies substernal chest pain, palpitations or edema GI: Denies abdominal pain, nausea, vomiting, bloody stools or diarrhea : Denies dysuria or hematuria Musculoskeletal: See HPI Integument: See HPI Neurologic: Denies headache, focal weakness or sensory changes Heart Score: C/O Chest Pain: Yes HEART Score for Chest Pain: HEART Score for Chest Pain Response (Comments) Value History Slighlty/Non-Suspicious 0 ECG Normal 0 Age > 65 2 Risk Factors 1 or 2 Risk Factors 1 Troponin < Normal Limit 0 Total 3 Risk Factors: Risk Factors: DM, obesity. Risk Scores: Score 0 - 3: 2.5% MACE over next 6 weeks - Discharge Home Score 4 - 6: 20.3% MACE over next 6 weeks - Admit for Clinical Observation Score 7 - 10: 72.7% MACE over next 6 weeks - Early Invasive Strategies Current Medications: Current Medications Medications (Trade) Dose Ordered Sig/Nikita Route PRN Reason Start Time Stop Time Status Last Admin Dose Admin Ketorolac Tromethamine (Toradol 15mg Vial) 15 mg 1X ONCE IVP 11/27/21 22:00 11/27/21 22:01 DC 11/27/21 21:55 Allergies: Allergies: Allergies Coded Allergies Type Severity Reaction Last Updated Verified No Known Drug Allergies 06/21/17 No Physical Exam: PE: Constitutional: Obese, minimal resting tremor consistent with history of Parkinson's, no acute distress, non-toxic appearance. HENT: Normocephalic, approximately 4 cm laceration noted on occipital scalp, bilateral external ears normal, oropharynx moist, no oral exudates, nose normal. Eyes: PERRL, EOMI, conjunctiva normal, no discharge. Neck: Normal range of motion, no tenderness, supple, no stridor. Abdomen: Protuberant abdomen, soft, no tenderness, no masses, no pulsatile masses. Skin: Warm, dry, no erythema, no rash. See above for scalp laceration Back: No step-off, no midline tenderness, midthoracic bruising appreciated that crosses the midline. Extremities: No tenderness, no cyanosis, no clubbing, ROM intact, no edema. Neurologic: Alert and oriented, normal motor function, normal sensory function, no focal deficits noted. Current Patient Data: Labs: Laboratory Tests Test 11/27/21 20:54 11/27/21 21:35 Glucose (Fingerstick) 138 mg/dL (70-99) H White Blood Count 11.1 x10^3/uL (4.0-11.0) H Red Blood Count 4.87 x10^6/uL (4.30-5.70) Hemoglobin 14.2 g/dL (13.0-17.5) Hematocrit 42.4 % (39.0-53.0) Mean Corpuscular Volume 87 fL (79-100) Mean Corpuscular Hemoglobin 29 pg (25-35) Mean Corpuscular Hemoglobin Concent 34 g/dL (31-37) Red Cell Distribution Width 14.1 % (11.5-14.5) Platelet Count 185 x10^3/uL (140-400) Neutrophils (%) (Auto) 85 % (31-73) H Lymphocytes (%) (Auto) 7 % (24-48) L Monocytes (%) (Auto) 5 % (0-9) Eosinophils (%) (Auto) 1 % (0-3) Basophils (%) (Auto) 1 % (0-3) Neutrophils # (Auto) 9.5 x10^3/uL (1.8-7.7) H Lymphocytes # (Auto) 0.8 x10^3/uL (1.0-4.8) L Monocytes # (Auto) 0.6 x10^3/uL (0.0-1.1) Eosinophils # (Auto) 0.1 x10^3/uL (0.0-0.7) Basophils # (Auto) 0.1 x10^3/uL (0.0-0.2) Sodium Level 142 mmol/L (136-145) Potassium Level 4.0 mmol/L (3.5-5.1) Chloride Level 103 mmol/L (98-107) Carbon Dioxide Level 28 mmol/L (21-32) Anion Gap 11 (6-14) Blood Urea Nitrogen 12 mg/dL (8-26) Creatinine 1.0 mg/dL (0.7-1.3) Estimated GFR (Cockcroft-Gault) 74.5 BUN/Creatinine Ratio 12 (6-20) Glucose Level 133 mg/dL (70-99) H Calcium Level 8.6 mg/dL (8.5-10.1) Total Bilirubin Pending Aspartate Amino Transferase (AST) Pending Alanine Aminotransferase (ALT) Pending Alkaline Phosphatase Pending Total Protein Pending Albumin Pending Albumin/Globulin Ratio Pending Laboratory Tests 11/27/21 21:35 Laboratory Tests 11/27/21 21:35 Vital Signs: Vital Signs Date Time Temp Pulse Resp B/P (MAP) Pulse Ox O2 Delivery O2 Flow Rate FiO2 11/27/21 23:49 96 21 171/94 (119) 96 Room Air 11/27/21 20:36 98.7 93 18 188/94 (125) 95 Room Air 98.7 EKG: EKG: EKG Interpreted by Dr. Pickard at 2108: Sinus tachycardia 104 bpm with no ectopic beats. QT 378 ms/NC 138 ms. No STEMI. Radiology/Procedures: Radiology/Procedures: PROCEDURE: CT head and cervical spine without contrast INDICATION: Mechanical fall, head pain and neck pain TECHNIQUE: Sequential axial images through the head and cervical spine were obtained without the administration of IV contrast. Exposure: One or more of the following in the visualized dose reduction techniques were utilized for this examination: 1. Automated exposure control 2. Adjustment of the MA and/or KV according to patient size 3. Use of iterative of reconstructive technique Comparisons: None FINDINGS: Head: No focal parenchymal lesion or hemorrhage is identified. There is no midline shift or sulcal effacement. No acute vascular territory infarction is identified. Celis-white distinction is preserved. The ventricular system is within normal limits without compression hydrocephalus. The basal cisterns are well maintained. The visualized portions of the paranasal sinuses and mastoid air cells are well- pneumatized. No acute fractures. Cervical spine: Straightening of cervical spine which may positional. Vertebral body heights are well-maintained. Fracture to the cervical spine is is not identified. Multilevel spondylotic change in cervical spine with degenerative disc disease throughout cervical spine. Diffuse bilateral facet arthropathy in cervical spine. Visualized paraspinal soft tissues are unremarkable. IMPRESSION: 1. No acute intracranial abnormality. 2. Negative CT C-spine for acute traumatic injury. Electronically signed by: Miko Vasquez MD (11/27/2021 10:24 PM) [facility] PROCEDURE: CT of chest without contrast. CT thoracic spine INDICATION: Mechanical trauma, head pain, neck pain TECHNIQUE: Sequential axial images through the chest obtained without IV contrast. Sagittal and coronal reformatted images were reconstructed from the axial data and reviewed. Cone-down reconstructed images of the thoracic spine. Exposure: One or more of the following in the visualized dose reduction techniques were utilized for this examination: 1. Automated exposure control 2. Adjustment of the MA and/or KV according to patient size 3. Use of iterative of reconstructive technique Comparisons: None FINDINGS: Visualized portions of the thyroid are unremarkable. No enlarged mediastinal lymph nodes are identified. Heart size is normal. No pericardial effusion. Mild coronary artery calcium. Thoracic aorta has normal course caliber. Pulmonary artery is not enlarged. Airways are patent. No consolidation or pneumothorax. No suspicious lung nodules. No pleural effusion or thickening. Spleen is enlarged. Visualized upper abdomen is unremarkable. No suspicious osseous lesions or acute fractures. Thoracic spine: Vertebral body heights and alignment are well-maintained. Fracture to the thoracic spine is not identified. No significant spondylotic change in the thoracic spine. IMPRESSION: 1. No sequela of acute traumatic injury identified in the chest. 2. Splenomegaly. 3. Negative CT thoracic spine for acute traumatic injury. Electronically signed by: Miko Vasquez MD (11/27/2021 10:31 PM) [facility] Course & Med Decision Making: Course & Med Decision Making Pertinent Labs and Imaging studies reviewed. (See chart for details) Patient is a 66-year-old male who experienced a mechanical fall at home. He now has occipital laceration and contusions to his head and thoracic back. Patient also complains of chest wall pain secondary to the position he was left in after he fell. CT images of the head, neck and chest are obtained with thoracic reconstruction. Patient was provided with Toradol IV for pain control. All CT images are negative for any acute injuries. Patient did request anesthetic medication prior to laceration repair, but he did not wish to have any injectable anesthetic medication. Let gel was applied. Occipital scalp laceration was repaired with anne. Patient was advised that his multiple contusions may cause him pain over the next couple days. He is advised to use [id number] analgesics. Patient is strongly advised to follow-up with his primary care provider for any pain control issues he may have in the next few days. Return precautions and wound care instructions were provided. Patient understands and is agreeable to discharge plan. Dragon Disclaimer: Dragon Disclaimer: This electronic medical record was generated, in whole or in part, using a voice recognition dictation system. Laceration Repair Lac Repair Indication: Occipital scalp laceration Procedure: The patient was placed in the appropriate position and anesthesia around the laceration was let gel (patient preference). The area was then irrigated with sterile saline and cleansed with chlorhexidine. The laceration was closed with 7 anne. Total repaired wound length: 4 cm. Other Items: The patient tolerated the procedure very well. Complications: No complications. Departure Departure Impression: Primary Impression: Fall from standing Qualified Codes: W19.XXXA - Unspecified fall, initial encounter Additional Impressions: Occipital scalp laceration Qualified Codes: S01.01XA - Laceration without foreign body of scalp, initial encounter Multiple contusions History of Parkinson's disease Benign essential hypertension Disposition: HOME / SELF CARE / HOMELESS Condition: IMPROVED Referrals: VASYL ESPINOSA MD (PCP) Patient Instructions: Chest Contusion, [id number], Facial or Scalp Contusion, [id number], Staple Wound Closure, [id number] Additional Instructions: Your anne may be removed in a period of 7-10 days. You may visit your [facility] doctor for follow-up and staple removal, or you are more than welcome to return to the emergency department for staple removal. EMERGENCY DEPARTMENT GENERAL DISCHARGE INSTRUCTIONS Thank you for coming to [facility] Emergency Department (ED) today and trusting us with you care. We trust that you had a positive experience in our Emergency Department. If you wish to speak to the department management, you may call the director at . YOUR FOLLOW UP INSTRUCTIONS ARE FOLLOWS: 1. Follow up with your primary care doctor. You may keep a blood pressure log. Your doctor can use the log to determine if any medication changes or adjustments are needed. If you do not have a primary doctor, please ask for a resource list of physicians or clinics that may be able to assist you with follow up care. 2. The emergency provider has interpreted your imaging studies, if any were ordered. The radiology precision agriculture specialist also reviewed them. If there is a c hange in the findings, you will be notified in 48 hours when at all possible. 3. If a lab test or culture has been done, your results will be reviewed and you will be notified if you need a change in treatment. 4. Follow instructions verbalized to you and refer to the printouts if needed. ADDITIONAL INSTRUCTIONS AND INFORMATION: 1. Your care today has been supervised by a physician who is specially trained in emergency care. Many problems require more than one evaluation for a complete diagnosis and treatment. We recommend that you schedule your follow up appointment as recommended to ensure complete treatment of you illness or injury. If you are unable to obtain follow up care and continue to have a problem, or if your condition worsens, we recommend that you return to the ED. 2. We are not able to safely determine your condition over the phone nor are we able to give sound medical advice over the phone. For these safety reasons, if you call for medical advice we will ask you to come to the ED for further evaluation. 3. If you have any questions regarding these discharge instructions please call the ED at . SAFETY INFORMATION: In the interest of safety, wellness, and injury prevention; we encourage you to wear your seat belt, if you smoke; quite smoking, and we encourage family to use a protective helmet for bicycling and other sporting events that present an increased risk for head injury. IF YOUR SYMPTOMS WORSEN OR NEW SYMPTOMS DEVELOP, OR YOU HAVE CONCERNS ABOUT YOUR CONDITION; OR IF YOUR CONDITION WORSENS WHILE YOU ARE WAITING FOR YOUR FOLLOW UP APPOINTMENT; EITHER CONTACT YOUR PRIMARY CARE DOCTOR, THE PHYSICIAN WHOSE NAME AND NUMBER YOU WERE GIVEN, OR RETURN TO THE ED IMMEDIATELY. MAYA CALLES Nov 27, 2021 22:19
--- NOTE | 2021-11-27 22:27 | RAD ---
Exam: CT head and cervical spine without contrast INDICATION: Mechanical fall, head pain and neck pain TECHNIQUE: Sequential axial images through the head and cervical spine were obtained without the admi nistration of IV contrast. Exposure: One or more of the following in the visualized dose reduction techniques were utilized for this examination: 1. Automated exposure control 2. Adjustment of the MA and/or KV according to patient size 3. Use of iterative of reconstructive technique Comparisons: None FINDINGS: Head: No focal parenchymal lesion or hemorrhage is identified. There is no midline shift or sulcal effaceme nt. No acute vascular territory infarction is identified. Celis-white distinction is preserved. The ventricular system is within normal limits without compression hydrocephalus. The basal cisterns are well maintained. The visualized portions of the paranasal sinuses and mastoid air cells are well-pneumatized. No acute fractures. Cervical spine: Straightening of cervical spine which may positional. Vertebral body heights are well-maintained. Fracture to the cervical spine is is not identified. Multilevel spondylotic change in cervical spine with degenerative disc disease throughout cervical sp ine. Diffuse bilateral facet arthropathy in cervical spine. Visualized paraspinal soft tissues are unremarkable. IMPRESSION: 1. No acute intracranial abnormality. 2. Negative CT C-spine for acute traumatic injury. Electronically signed by: Miko Vasquez MD (11/27/2021 10:24 PM) JULIUS
--- NOTE | 2021-11-27 22:33 | RAD ---
Exam: CT of chest without contrast. CT thoracic spine INDICATION: Mechanical trauma, head pain, neck pain TECHNIQUE: Sequential axial images through the chest obtained without IV contrast. Sagittal and coron al reformatted images were reconstructed from the axial data and reviewed. Cone-down reconstructed im ages of the thoracic spine. Exposure: One or more of the following in the visualized dose reduction techniques were utilized for this examination: 1. Automated exposure control 2. Adjustment of the MA and/or KV according to patient size 3. Use of iterative of reconstructive technique Comparisons: None FINDINGS: Visualized portions of the thyroid are unremarkable. No enlarged mediastinal lymph nodes are identifi ed. Heart size is normal. No pericardial effusion. Mild coronary artery calcium. Thoracic aorta has tracie l course caliber. Pulmonary artery is not enlarged. Airways are patent. No consolidation or pneumothorax. No suspicious lung nodules. No pleural effusion or thickening. Spleen is enlarged. Visualized upper abdomen is unremarkable. No suspicious osseous lesions or acute fractures. Thoracic spine: Vertebral body heights and alignment are well-maintained. Fracture to the thoracic spine is not identified. No significant spondylotic change in the thoracic spine. IMPRESSION: 1. No sequela of acute traumatic injury identified in the chest. 2. Splenomegaly. 3. Negative CT thoracic spine for acute traumatic injury. Electronically signed by: Miko Vasquez MD (11/27/2021 10:31 PM) [facility]
[2021-11-27] MEDS ORDERED: LIDOCAINE/EPI/TETRACAINE TOPICAL GEL 3 ML. TP ONE (23:00)
[2021-11-27 23:49] VITALS: BP 171/94
[2021-11-28] MEDS ORDERED: ACETAMINOPHEN 500 MG TABLET PO ONE
--- NOTE | 2021-11-28 05:46 | EKG ---
[facility] [address] [place] [address] Test Date: 2021-11-27 Test Time: 21:05:12 Pat Name: ALIZA NEAL Department: Room: Gender: M Tripe Washer: [id number] : 1955 Requested By: MAYA CALLES Order Number: [id number] Reading MD: Musa Santiago Measurements Intervals [place] Rate: 104 P: 41 AL: 138 QRS: -3 QRSD: 86 T: 114 QT: 378 QTc: 504 Interpretive Statements SINUS TACHYCARDIA LEFTWARD AXIS T ABNORMALITY IN LATERAL LEADS Electronically Signed On 12-01-2021 18:32:54 CDT by Musa Santiago
== END 2021-11-28 00:30 | disposition home or self-care (01) ==
LOC: ER 20:21
DX: S01.01XA Laceration without foreign body of scalp, initial encounter (principal); I10 Essential (primary) hypertension; G20 Parkinson's disease; E11.9 Type 2 diabetes mellitus without complications; Z87.891 Personal history of nicotine dependence; W18.39XA Other fall on same level, initial encounter; Y93.89 Activity, other specified; Y92.098 Other place in other non-institutional residence as the place of occurrence of the external cause; Y99.8 Other external cause status
CPT/HCPCS: 12002; 36415; 70450; 71250; 72125; 80053; 82962; 84484; 85025; 93005; 96374; 99285; J1885